=== PATIENT | female | born 1960 | race African-American/Black ===

== ENCOUNTER 2017-09-18 19:31 | Emergency (ER) | payer BC, SELFPAY ==
[2017-09-18] MEDS ORDERED: HYDROCODONE/APAP 7.5/325 MG TAB ONE (20:10)
--- NOTE | 2017-09-18 20:47 | ER ---
Nurse's Notes [facility] Name: Diane Gayle Age: 57 yrs Sex: Female : 1960 Arrival Date: 09/18/2017 Time: 19:34 Bed 30 Private MD: Tena Chappell K Diagnosis: Unspecified sprain of foot Presentation: 09/18 19:52 Presenting complaint: Patient states: she was trying to change her tire and was jumping bb on the tire iron in flip-flops when she slipped injuring right foot pain is 10/10. Transition of care: patient was not received from another setting of care. Onset of symptoms was September 18, 2017. Risk Assessment: Do you want to hurt yourself or someone else? Patient reports no desire to harm self or others. Initial Sepsis Screen: Does the patient meet any 2 criteria? No. Patient's initial sepsis screen is negative. Does the patient have a suspected source of infection? No. Patient's initial sepsis screen is negative. Care prior to arrival: None. 19:52 Method Of Arrival: Wheelchair bb 19:52 Acuity: JENNA 4 bb Triage Assessment: 21:18 General: Appears in no apparent distress. Injury Description: Bruise. 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 - Social history:: Smoking status: Patient uses tobacco products, smokes one pack cigarettes per day. Patient uses alcohol, occasionally. Patient/guardian denies using street drugs. - Ebola Screening: : No symptoms or risks identified at this time. Screenin:22 Abuse screen: Denies threats or abuse. Denies injuries from another. Nutritional lk1 screening: No deficits noted. Tuberculosis screening: No symptoms or risk factors identified. Fall Risk Total [place] Fall Scale indicates Low Risk Score (25-44 pts). Fall prevention measures have been instituted. Side Rails Up X 2 Placed close to Nursing Station Frequent Obs/Assesments occuring Family Present and informed to notify staff if they need to leave bedside As available Patient and Family Educated on Fall Prevention Program and strategies. Assessment: 20:00 General: Appears in no apparent distress. Behavior is calm, cooperative, appropriate lk1 for age. General: Appears uncomfortable. Pain: Complains of pain in arch of right foot Pain currently is 10 out of 10 on a pain scale. Neuro: Level of Consciousness is awake, alert, obeys commands, Oriented to person, place, time, situation. Cardiovascular: Capillary refill is brisk Patient's skin is warm and dry. Pulses are palpable in right dorsalis pedis artery. Musculoskeletal: Swelling present in right foot. Vital Signs: 19:54 BP 163 / 103; Pulse 83; Resp 18 S; Temp 97.7(O); Pulse Ox 100% on R/A; Weight 73.94 kg bb (R); Height 5 ft. 8 in. (172.72 cm) (R); Pain 10/10; 21:00 BP 144 / 99; Pulse 68; Resp 16; Pulse Ox 100% on R/A; Pain 7/10; lk1 19:54 Body Mass Index 24.78 (73.94 kg, 172.72 cm) bb ED Course: 19:34 Patient arrived in ED. ds1 19:34 Tena Chappell MD is Private Physician. ds1 19:44 Emmy Huizar FNP-C is [facility]. snw 19:44 Harshil Palma MD is Attending Physician. snw 19:53 Triage completed. bb 19:54 Arm band placed on Patient placed in an exam room, on a stretcher, on pulse oximetry. bb Affected limb elevated. Family accompanied patient. 20:06 Dionna Olvera, BRYANT is Primary Nurse. lk1 20:17 X-ray completed. Portable x-ray completed in exam room. Patient tolerated procedure bb2 well. 20:17 Foot Right 3 View XRAY In Process Unspecified. EDMS 20:45 Tena Chappell MD is Referral Physician. snw 21:17 No provider procedures requiring assistance completed. Patient did not have IV access lk1 during this emergency room visit. Lucas wrap to right ankle Ortho shoe applied to right foot. 21:18 Patient has correct armband on for positive identification. Bed in low position. Call lk1 light in reach. Side rails up X2. Adult w/ patient. Administered Medications: 20:12 Drug: Glen Gardner (7.5 mg-325 mg) 1 tabs Route: PO; lk1 21:10 Follow up: Response: No adverse reaction; Pain is decreased lk1 Outcome: 20:46 Discharge ordered by . thompson 21:18 Discharged to home via wheelchair, with family. lk1 21:18 Condition: good 21:18 Discharge instructions given to patient, family, Instructed on discharge instructions, follow up and referral plans. medication usage, safety practices, Demonstrated understanding of instructions, follow-up care, medications, Prescriptions given X 1. 21:19 Patient left the ED. lk1 Signatures: Dispatcher [employer] EDMS Emmy Huizar, AUTOMATED WEAVER-C AUTOMATED WEAVER-Cha La ds1 Sheila Tena RN RN Dionna Carrizales RN RN lk1 Yesenia Guardado bb2
--- NOTE | 2017-09-18 20:47 | EDPHYS ---
Physician Documentation [facility] Name: Diane Gayle Age: 57 yrs Sex: Female : 1960 Arrival Date: 09/18/2017 Time: 19:34 Bed 30 Private MD: Tena Chappell K ED Physician Harshil Palma HPI: 09/18 19:56 This 57 yrs old Black Female presents to ER via Wheelchair with complaints of Foot snw Injury. 19:56 The patient presents with pain, that is acute. The complaints affect the dorsum of snw right foot and arch of right foot. Context: The problem was sustained outdoors, resulted from jumping on tire iron in flip-flops, the patient is not able to bear weight, must have assistance. Onset: The symptoms/episode began/occurred suddenly, just prior to arrival. Modifying factors: the symptoms are aggravated by movement. Severity of symptoms: At their worst the symptoms were moderate. The patient has not experienced similar symptoms in the past. It is unknown whether or not the patient has recently seen a physician. 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 - Social history:: Smoking status: Patient uses tobacco products, smokes one pack cigarettes per day. Patient uses alcohol, occasionally. Patient/guardian denies using street drugs. - Ebola Screening: : No symptoms or risks identified at this time. ROS: 19:56 Constitutional: Negative for fever, chills, and weight loss, Eyes: Negative for injury, snw pain, redness, and discharge, ENT: Negative for injury, pain, and discharge, Neck: Negative for injury, pain, and swelling, Cardiovascular: Negative for chest pain, palpitations, and edema, Respiratory: Negative for shortness of breath, cough, wheezing, and pleuritic chest pain, Abdomen/GI: Negative for abdominal pain, nausea, vomiting, diarrhea, and constipation, Back: Negative for injury and pain, : Negative for injury, bleeding, discharge, and swelling, MS/Extremity: Negative for deformity, + pain to right mid foot Skin: Negative for injury, rash, and discoloration, Neuro: Negative for headache, weakness, numbness, tingling, and seizure, Psych: Negative for depression, anxiety, suicide ideation, homicidal ideation, and hallucinations. Exam: 19:55 Constitutional: This is a well developed, well nourished patient who is awake, alert, snw and in no acute distress. Head/Face: Normocephalic, atraumatic. Eyes: Pupils equal round and reactive to light, extra-ocular motions intact. Lids and lashes normal. Conjunctiva and sclera are non-icteric and not injected. Cornea within normal limits. Periorbital areas with no swelling, redness, or edema. ENT: Nares patent. No nasal discharge, no septal abnormalities noted. Tympanic membranes are normal and external auditory canals are clear. Oropharynx with no redness, swelling, or masses, exudates, or evidence of obstruction, uvula midline. Mucous membranes moist. Neck: Trachea midline, no thyromegaly or masses palpated, and no cervical lymphadenopathy. Supple, full range of motion without nuchal rigidity, or vertebral point tenderness. No Meningismus. Chest/axilla: Normal chest wall appearance and motion. Nontender with no deformity. No lesions are appreciated. Cardiovascular: Regular rate and rhythm with a normal S1 and S2. No gallops, murmurs, or rubs. Normal PMI, no JVD. No pulse deficits. Respiratory: Lungs have equal breath sounds bilaterally, clear to auscultation and percussion. No rales, rhonchi or wheezes noted. No increased work of breathing, no retractions or nasal flaring. Abdomen/GI: Soft, non-tender, with normal bowel sounds. No distension or tympany. No guarding or rebound. No evidence of tenderness throughout. Back: No spinal tenderness. No costovertebral tenderness. Full range of motion. Skin: Warm, dry with normal turgor. Normal color with no rashes, no lesions, and no evidence of cellulitis. Neuro: Awake and alert, GCS 15, oriented to person, place, time, and situation. Cranial nerves II-XII grossly intact. Motor strength 5/5 in all extremities. Sensory grossly intact. Cerebellar exam normal. Normal gait. Psych: Awake, alert, with orientation to person, place and time. Behavior, mood, and affect are within normal limits. 19:55 Musculoskeletal/extremity: Extremities: noted in the arch of right foot and dorsum of right foot: decreased ROM, ecchymosis, tenderness, ROM: limited active range of motion due to pain, Circulation is intact in all extremities. Sensation intact. Vital Signs: 19:54 BP 163 / 103; Pulse 83; Resp 18 S; Temp 97.7(O); Pulse Ox 100% on R/A; Weight 73.94 kg bb (R); Height 5 ft. 8 in. (172.72 cm) (R); Pain 10/10; 21:00 BP 144 / 99; Pulse 68; Resp 16; Pulse Ox 100% on R/A; Pain 7/10; lk1 19:54 Body Mass Index 24.78 (73.94 kg, 172.72 cm) bb MDM: 19:46 Patient medically screened. snw 20:47 Data reviewed: vital signs, nurses notes. Data interpreted: Pulse oximetry: on room air snw is 100 %. Interpretation: normal. Counseling: I had a detailed discussion with the patient and/or guardian regarding: the historical points, exam findings, and any diagnostic results supporting the discharge/admit diagnosis, the presence of at least one elevated blood pressure reading (>120/80) during this emergency department visit, radiology results, the need for outpatient follow up, to return to the emergency department if symptoms worsen or persist or if there are any questions or concerns that arise at home. Special discussion: Based on the history and exam findings, there is no indication for further emergent testing or inpatient evaluation. I discussed with the patient/guardian the need to see the orthopedic surgeon for further evaluation of the symptoms. I discussed with the patient/guardian the need to see the primary care provider for further evaluation of the symptoms. 09/18 19:50 Order name: Foot Right 3 View XRAY; Complete Time: 20:57 snw 09/18 20:37 Order name: Lucas wrap-joint; Complete Time: 21:05 snw 09/18 20:37 Order name: Post-op shoe; Complete Time: 21:05 snw Administered Medications: 20:12 Drug: Benton (7.5 mg-325 mg) 1 tabs Route: PO; lk1 21:10 Follow up: Response: No adverse reaction; Pain is decreased lk1 Disposition: 09/19 05:54 Co-signature as Attending Physician, Harshil Palma MD I agree with the assessment and tw4 plan of care. Disposition: 09/18/17 20:46 Discharged to Home. Impression: Unspecified sprain of foot. - Condition is Stable. - Discharge Instructions: Cast or Splint Care, Foot Sprain, Hypertension. - Prescriptions for Diclofenac Sodium 75 mg Oral Tablet Sustained Release - take 1 tablet by ORAL route 2 times per day; 30 tablet. - Medication Reconciliation Form, Thank You Letter, Antibiotic Education, Prescription Opioid Use, Work release form form. - Follow up: Tena Chappell MD; When: 2 - 3 days; Reason: Recheck today's complaints, Continuance of care, Re-evaluation by your physician. Follow up: Emergency Department; When: As needed; Reason: Worsening of condition. Signatures: Dispatcher [employer] EDMS Emmy Huizar, LAVERNE-C DIRECTOR OF SALES AND MARKETING-Csnw Sheila Tena RN RN Dionna Carrizales RN RN lkHarshil Chauhan MD MD tw4 Corrections: (The following items were deleted from the chart) 09/18 21:19 20:46 09/18/2017 20:46 Discharged to Home. Impression: Unspecified sprain of foot. lk1 Condition is Stable. Forms are Medication Reconciliation Form, Thank You Letter, Antibiotic Education, Prescription Opioid Use. Follow up: Tena Chappell; When: 2 - 3 days; Reason: Recheck today's complaints, Continuance of care, Re-evaluation by your physician. Follow up: Emergency Department; When: As needed; Reason: Worsening of condition. snw
--- NOTE | 2017-09-18 20:55 | RAD REPORT ---
EXAM DESCRIPTION: RAD - Foot Right 3 View - 09/18/2017 8:23 pm CLINICAL HISTORY: Foot pain following trauma COMPARISON: None. FINDINGS: No fracture, dislocation or periosteal reaction. No acute or destructive bone or joint fin ding. Patient has bunion deformity at the first MTP joint. No air or foreign body in the soft tissues. IMPRESSION: Negative right foot for fracture or acute finding.
== END 2017-09-18 21:19 | disposition home or self-care (01) ==
LOC: ER 19:31
DX: S93.601A Unspecified sprain of right foot, initial encounter (principal); X58.XXXA Exposure to other specified factors, initial encounter; Y93.39 Activity, other involving climbing, rappelling and jumping off; Y92.89 Other specified places as the place of occurrence of the external cause; F17.210 Nicotine dependence, cigarettes, uncomplicated
CPT/HCPCS: 99284

== ENCOUNTER → 2017-11-26 | Day surgery (SDC) | payer BC ==
--- NOTE | 2017-11-26 12:54 | RAD REPORT ---
EXAM DESCRIPTION: US - BREAST/AXILLA, LIMITED - 11/26/2017 12:39 pm CLINICAL HISTORY: BIOPSY FOR BRST MASS COMPARISON: Follow Up Breast Axilla Comp dated 11/10/2017; IMP 3D DIAG APOORVA BILAT W/CAD dated 8 FINDINGS: Limited radiologist directed pre-procedure right breast sonography was performed. Real-time sonography of the periareolar 3 o'clock region demonstrates hypoechoic 14 x 13 x 5 mm lesio n with dystrophic calcifications. Under real-time radiologist directed ultrasound, the lesion is demo nstrated to reside within the dermis. The lesion does not extend or involves the subcutaneous fat or glandular elements of the breast. The patient also is noted to have a breast implant in very close ap proximation to the lesion. Given the pre-procedure findings, ultrasound-guided core biopsy of this sk in lesion is not technically feasible. Dermatologic / surgical assessment/punch skin biopsy may be co nsidered. Findings were discussed with the patient as well as Dr. Chappell on 11/26/2017. IMPRESSION: 14 x 13 x 5 mm hypoechoic periareolar right breast lesion with dystrophic calcifications is demonstrated to be within the dermis. This lesion is not amenable to ultrasound-guided core breas t biopsy due to this location. Dermatologic/surgical evaluation may be considered.
== END ==
LOC: DS 11-19 15:31
PROVIDERS: ATTEND General Practice
DX: N63.0 Unspecified lump in unspecified breast (principal); Z53.8 Procedure and treatment not carried out for other reasons
CPT/HCPCS: 76642

== ENCOUNTER 2018-03-02 08:00 | Emergency (ER) | payer BC ==
--- NOTE | 2018-03-02 08:47 | RAD REPORT ---
EXAM DESCRIPTION: RAD - Knee Left 3 View - 03/02/2018 8:34 am CLINICAL HISTORY: Nontraumatic knee pain COMPARISON: None. FINDINGS: No fracture, dislocation or periosteal reaction.No joint effusion seen. No joint space amirah rowing. No soft tissue abnormality. IMPRESSION: Negative left knee. Clinical concerns for internal derangement or occult bony injury could be further assessed with MR im aging.
--- NOTE | 2018-03-02 08:51 | ER ---
Nurse's Notes [facility] Name: Diane Gayle Age: 57 yrs Sex: Female : 1960 Arrival Date: 03/02/2018 Time: 08:03 Bed 13 Private MD: Tena Chappell K Diagnosis: Left knee strain Presentation: 03/02 08:14 Presenting complaint: Patient states: L knee pain x 2 days. No known injury. No redness ss or swelling noted. Transition of care: patient was not received from another setting of care. Onset of symptoms was February 28, 2018. Risk Assessment: Do you want to hurt yourself or someone else? Patient reports no desire to harm self or others. Initial Sepsis Screen: Does the patient meet any 2 criteria? No. Patient's initial sepsis screen is negative. Does the patient have a suspected source of infection? No. Patient's initial sepsis screen is negative. Care prior to arrival: None. 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 - Social history:: Smoking status: Patient/guardian denies using tobacco. - Ebola Screening: : Patient denies exposure to infectious person Patient denies travel to an Ebola-affected area in the 21 days before illness onset. Screenin:14 Abuse screen: Denies threats or abuse. Denies injuries from another. Nutritional ss screening: No deficits noted. Tuberculosis screening: Never had TB. Fall Risk None identified. Assessment: 08:14 General: Appears comfortable, Behavior is calm, cooperative, Denies fever, feeling ill, ss fatigue, chills. Pain: Complains of pain in medial aspect of left knee Pain currently is 8 out of 10 on a pain scale. Quality of pain is described as aching, tender, Pain began 2-3 days ago. Is continuous, Alleviated by rest, Aggravated by increased activity, weight bearing. Neuro: Level of Consciousness is awake, alert, obeys commands, Oriented to person, place, time, situation. Cardiovascular: Capillary refill < 3 seconds is brisk in bilateral fingers. Respiratory: Airway is patent Respiratory effort is even, unlabored, Respiratory pattern is regular, symmetrical. Derm: Skin is intact, is healthy with good turgor, Skin is dry, Skin is pink, warm \T\ dry. normal. Musculoskeletal: Circulation, motion, and sensation intact. Range of motion: intact in all extremities, Swelling absent. Vital Signs: 08:18 BP 123 / 85; Pulse 85; Resp 15; Temp 98.0(TE); Pulse Ox 100% on R/A; Weight 72.57 kg; ss Height 5 ft. 8 in. (172.72 cm); Pain 8/10; 08:18 Body Mass Index 24.33 (72.57 kg, 172.72 cm) ED Course: 08:03 Patient arrived in ED. sb2 08:04 Tena Chappell MD is Private Physician. sb2 08:06 Enrico Montes MD is Attending Physician. ps1 08:14 Patient has correct armband on for positive identification. Bed in low position. Call ss light in reach. Adult w/ patient. 08:18 Triage completed. ss 08:18 Arm band placed on right wrist. ss 08:22 Manpreet Nunez, BRYANT is Primary Nurse. sg 08:35 Knee Left 3 View XRAY In Process Unspecified. EDMS 08:36 X-ray completed. Portable x-ray completed in exam room. Patient tolerated procedure jb2 well. 08:48 Tena Chappell MD is Referral Physician. ps1 08:48 No provider procedures requiring assistance completed. Patient did not have IV access ss during this emergency room visit. 09:04 Lucas wrap to left knee. ss Administered Medications: No medications were administered Outcome: 08:50 Discharge ordered by . ps1 09:00 Patient left the ED. sg 09:00 Discharged to home via wheelchair. ss 09:00 Condition: good 09:00 Discharge instructions given to patient, family, Instructed on discharge instructions, follow up and referral plans. Demonstrated understanding of instructions, follow-up care, Prescriptions given X 3. Signatures: Dispatcher [employer] EDMS Manpreet Nunez RN RN Danny Jansen jb2 Patience Funes RN RN Enrico Montes MD MD ps1 Yolande Singh sb2
--- NOTE | 2018-03-02 08:51 | EDPHYS ---
Physician Documentation [facility] Name: Diane Gayle Age: 57 yrs Sex: Female : 1960 Arrival Date: 03/02/2018 Time: 08:03 Bed 13 Private MD: Tena Chappell K ED Physician Enrico Montes HPI: 03/02 08:18 This 57 yrs old Black Female presents to ER via Wheelchair with complaints of Knee Pain ps1 - LEFT. 08:18 Onset was 2 days ago. Pain localized to medial aspect of left knee. Atraumatic. 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 Pain rated as moderate and worse with weight bearing. No effusion, fever, rash. . 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 - Social history:: Smoking status: Patient/guardian denies using tobacco. - Ebola Screening: : Patient denies exposure to infectious person Patient denies travel to an Ebola-affected area in the 21 days before illness onset. ROS: 08:18 Constitutional: Negative for fever, chills, and weight loss, Eyes: Negative for injury, ps1 pain, redness, and discharge, Cardiovascular: Negative for chest pain, palpitations, and edema, Respiratory: Negative for shortness of breath, cough, wheezing, and pleuritic chest pain, Abdomen/GI: Negative for abdominal pain, nausea, vomiting, diarrhea, and constipation, Skin: Negative for injury, rash, and discoloration, Neuro: Negative for headache, weakness, numbness, tingling, and seizure. 08:18 MS/extremity: Positive for injury or acute deformity, tenderness. Exam: 08:18 Constitutional: This is a well developed, well nourished patient who is awake, alert, ps1 and in no acute distress. Head/Face: Normocephalic, atraumatic. Chest/axilla: Normal chest wall appearance and motion. Nontender with no deformity. No lesions are appreciated. Cardiovascular: Regular rate and rhythm. No gallops, murmurs, or rubs. Normal PMI, no JVD. No pulse deficits. Respiratory: Lungs have equal breath sounds bilaterally, clear to auscultation and percussion. No rales, rhonchi or wheezes noted. No increased work of breathing, no retractions or nasal flaring. Abdomen/GI: Soft, non-tender, with normal bowel sounds. No distension or tympany. No guarding or rebound. No evidence of tenderness throughout. 08:18 Musculoskeletal/extremity: Extremities: grossly normal except: noted in the medial aspect of left knee: There is no evidence of deformity, rash, effusion or laxity with stress testing of ligaments. Vital Signs: 08:18 BP 123 / 85; Pulse 85; Resp 15; Temp 98.0(TE); Pulse Ox 100% on R/A; Weight 72.57 kg; ss Height 5 ft. 8 in. (172.72 cm); Pain 8/10; 08:18 Body Mass Index 24.33 (72.57 kg, 172.72 cm) ss MDM: 08:07 Patient medically screened. ps1 08:18 Data reviewed: vital signs, nurses notes. ps1 03/02 08:06 Order name: Knee Left 3 View XRAY; Complete Time: 08:48 ps1 Administered Medications: No medications were administered Disposition: [id number] 08:50 Discharged to Home. Impression: Left knee strain. - Condition is Stable. - Discharge Instructions: Knee Pain, [id number]. - Prescriptions for Anaprox DS 550 mg Oral Tablet - take 1 tablet by ORAL route every 12 hours As needed; 20 tablet. Robaxin 500 mg Oral Tablet - take 2 tablet by ORAL route every 6 hours As needed; 40 tablet. Medrol (Brian) 4 mg Oral Tablets, Dose Pack - take 1 tablet by ORAL route as directed - follow package instructions; 1 packet. - Medication Reconciliation Form, Thank You Letter, Antibiotic Education, Prescription Opioid Use form. - Follow up: Tena Chappell MD; When: As needed; Reason: Further diagnostic work-up, Recheck today's complaints, Continuance of care, Re-evaluation by your physician. Follow up: Emergency Department; When: As needed; Reason: Fever > 102 F, Worsening of condition. - Problem is new. - Symptoms are unchanged. Signatures: Dispatcher [employer] EDMS Manpreet Nunez, RN RN Patience Kumari RN RN ss Enrico Montes MD MD ps1 Corrections: (The following items were deleted from the chart) 09:00 08:50 03/02/2018 08:50 Discharged to Home. Impression: Left knee strain. Condition is sg Stable. Forms are Medication Reconciliation Form, Thank You Letter, Antibiotic Education, Prescription Opioid Use. Follow up: Tena Chappell; When: As needed; Reason: Further diagnostic work-up, Recheck today's complaints, Continuance of care, Re-evaluation by your physician. Follow up: Emergency Department; When: As needed; Reason: Fever > 102 F, Worsening of condition. Problem is new. Symptoms are unchanged. ps1
== END 2018-03-02 09:00 | disposition home or self-care (01) ==
LOC: ER 08:00
DX: S83.92XA Sprain of unspecified site of left knee, initial encounter (principal); X58.XXXA Exposure to other specified factors, initial encounter
CPT/HCPCS: 99283